=== PATIENT | male | born 1945 | race Caucasian/White ===

== ENCOUNTER 2017-03-04 16:55 | Observation (INO) | payer MEDICARE, BC ==
--- NOTE | ~2017-03-04 | DS ---
Discharge Summary [facility] [address] [place]. [address] NAME: ESPINOZA OSORIO : 41 STATUS : DIS [place] PAT#: [id number] AGE: 71 ADM/REG DATE : 03/04/17 MR#: [id number] REPORT SERV DATE: 03/05/17 DICTATED BY: FABIO REYES DATE: 03/05/17 REPORT STATUS : Draft TRANSCRIBED BY: MODL DATE: 03/05/17 ADMISSION DATE: 03/04/2017 DISCHARGE DATE: 03/05/2017 DISCHARGE DIAGNOSES: 1. Pneumonitis most likely due to tumor. 2. Chronic obstructive pulmonary disease with mild exacerbation, now resolved. 3. History of pulmonary embolism, on chronic anticoagulation. 4. Non-small cell lung cancer followed by Dr. Prabhjot Luna. CONSULTANTS DURING THIS HOSPITALIZATION: None. INVASIVE PROCEDURES DONE DURING THIS HOSPITALIZATION: None. BRIEF HISTORY OF PRESENT ILLNESS: The patient is a 71-year-old white male who presented with chest pain and cough, so he was admitted. For detailed history and physical exam, please see my note dictated on 03/04/2017. HOSPITAL COURSE: After being admitted to the hospital, this patient was given antibiotics and aggressive nebulizing treatments with IV steroids. When I saw the patient the next morning and reviewed his records, apparently this patient already has had left upper lobe tumor with collapse on a recent CT scan and is followed by Dr. Luna. Dr. Luna has set him up in [place] with Dr. Thomas to have proton radiation done. 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 There has not been much clinical change in his overall presentation. The chest x-ray done here apparently showed atelectasis, worsened infiltrates, and a shift in the mediastinum, which seems to have been present as well. I discussed his care with Dr. Cl Gill of Oncology, and at this time, there is no further treatment. He does have home O2 and he will continue that. DISCHARGE DISPOSITION: Home. DISCHARGE ACTIVITY: As tolerated. DISCHARGE DIET: Low-sodium diet. DISCHARGE MEDICATIONS: Tylenol 250 mg p.o. p.r.n., albuterol one puff p.o. daily p.r.n., albuterol nebs one neb every five hours p.r.n., apixaban 5 mg twice daily, guaifenesin 600 mg once every morning, prednisone 10 mg half tablet every 48 hours, magnesium one tablet twice daily, vitamin E, Ambien 2.5 mg once at bedtime. DISCHARGE FOLLOWUP: With Dr. Prabhjot Luna as previously scheduled. About 20 minutes spent planning this patient's discharge, reconciling medications, and discussing hospital care, and documenting this discharge. Discharge Summary [address] [address] NAME: ESPINOZA OSORIO : 41 STATUS : DIS Olive PAT#: [id number] AGE: 71 ADM/REG DATE : 03/04/17 MR#: [id number] REPORT SERV DATE: 03/05/17 DICTATED BY: FABIO REYES DATE: 03/05/17 REPORT STATUS : Draft TRANSCRIBED BY: GREY DATE: 03/05/17 DICTATED BY: Mayur Argueta/GREY Fabio Reyes M.D. / [id number] CC: Mayur Argueta LISA M * Darrell Johnson, M.D. Charles Adams, M.D.
--- NOTE | ~2017-03-04 | HP ---
History And Physical [facility] [address] [place]. [address] NAME: ESPINOZA OSORIO : 41 STATUS : ADM Olive PAT#: [id number] AGE: 71 ADM/REG DATE : 03/04/17 MR#: [id number] REPORT SERV DATE: 03/04/17 DICTATED BY: FABIO RODRIGUEZ DATE: 03/04/17 REPORT STATUS : Draft TRANSCRIBED BY: MODL DATE: 03/04/17 DATE OF ADMISSION: 03/04/2017 CHIEF COMPLAINT: Chest pain. BRIEF HISTORY OF PRESENT ILLNESS: The patient is a 71-year-old white male with known history of lung cancer, squamous cell carcinoma with metastasis, presented today with complaints of chest pain and coughing. He said it started somewhere around Tuesday and Tuesday. He has progressively gotten worse. Now whenever he coughs, his chest hurts mainly on the right side. When he takes a deep breath, it hurts as well. He has had significant sputum production, but no blood in the sputum. He has not had any fever, chills, or sweats. He denies any increased shortness of breath than his baseline. There is no back pain. No abdominal pain. No nausea, vomiting, or any other constitutional symptoms. When he came to the emergency room, his chest x-ray looked slightly worse than his previous with progression either of his cancer or maybe an infiltrate versus atelectasis, so he has been referred to the Hospitalist Service for further treatment and evaluation. REVIEW OF SYSTEMS: 10-point review of systems otherwise was negative. PAST MEDICAL HISTORY: Significant for squamous cell carcinoma with metastatic disease, status post chemo radiation for palliative treatment, currently on immunotherapy. He has a history of pneumonia, asbestosis, COPD, chronic long-standing tobacco abuse. He has also history of pulmonary emboli on chronic anticoagulation. PAST SURGICAL HISTORY: Significant for knee surgery from traumatic injury, but otherwise unremarkable. ALLERGIES: TO PENICILLIN. HOME MEDICATIONS: Tylenol, albuterol one puff p.r.n. daily, albuterol neb one neb every five hours p.r.n. for shortness of breath, Eliquis 5 mg twice daily, Mucinex 600 mg every morning, Deltasone 10 mg every 48 hours which is long-term therapy, magnesium one tablet p.o. twice daily, vitamin E, and Ambien 2.5 mg once at bedtime as needed for sleep. SOCIAL HISTORY: He is an active smoker and has cut down, was smoking almost one to two packs per day for many many years prior to his diagnosis of lung cancer. He denies any alcohol. Denies any illicit substances. He lives at home with and is self-sufficient in all ADLs. FAMILY HISTORY: Significant for diabetes. No history of lung cancer in the family. PHYSICAL EXAMINATION: GENERAL: White male, lying on a gurney, appears to be in no obvious respiratory distress. He is saturating 98% on 2 L. He is awake and alert. He is oriented. VITAL SIGNS: Blood pressure is 126/73, temp is 98.5, pulse of 106, saturation of 98% on 2 L History And Physical [address] [address] NAME: ESPINOZA OSORIO : 41 STATUS : ADM Olive PAT#: [id number] AGE: 71 ADM/REG DATE : 03/04/17 MR#: [id number] REPORT SERV DATE: 03/04/17 DICTATED BY: FABIO RODRIGUEZ DATE: 03/04/17 REPORT STATUS : Draft TRANSCRIBED BY: GREY DATE: 03/04/17 at his baseline. HEENT: Head is normocephalic, atraumatic. Pupils are equal, round, and reactive to light. Extraocular muscles are intact. Sclerae are anicteric. Conjunctivae normal. Oropharynx without lesion. Tongue protrusion midline. Uvula midline. NECK: Supple with no evidence of any jugular venous distention. No carotid bruits or thyromegaly is appreciated. No lymphadenopathy in the neck is palpable. HEART: Tachycardic. No murmurs, rubs, or gallops. PMI nondisplaced. LUNGS: Diffuse wheezing and rhonchi is noted. No crackles. No rales. No evidence of any focal consolidation. Worse on the right than on the left. ABDOMEN: Scaphoid, soft, nontender. Good bowel sounds. No rebound or guarding. No organomegaly. EXTREMITIES: Without cyanosis, clubbing, or edema. NEUROLOGIC: Completely intact. LABORATORY DATA: Procalcitonin level of 0.05. Electrolyte panel is completely normal. Creatinine is 0.81, glucose is 126. Liver function studies are completely normal and an albumin of 2.8. Troponin is less than 0.02. Lactate level is 1.4. White count is 8.5, a hemoglobin is 11.7, a hematocrit of 35, platelet count is 287,000, no left shift. PT is 14.6, INR of 1.2, PTT is 32. Chest x-ray, increased left hilar soft tissue fullness, likely representing interval progression of previously seen central left lung mass, volume loss on the left side with mediastinal shift to the left and increased density through the left lung which may be due to atelectasis and/or infiltrate, small left pleural fluid is also noted. EKG: Sinus rhythm with occasional PVCs. Incomplete right bundle branch block. Otherwise, no acute ST-T wave changes. IMPRESSION: 1. Most likely pleuritis. 2. Acute exacerbation of chronic obstructive pulmonary disease. 3. Pneumonia versus cancer progression. 4. History of pulmonary embolism. 5. Lung cancer with metastatic disease. PLAN: The patient will be admitted for observation. Nebulizing treatments will be given. IV Solu-Medrol will be started. IV antibiotics. PA and lateral chest x-ray. Again home medications have been addressed. The patient remains a full code. SV/GREY Fabio Rodriguez M.D. / [id number] History And Physical [address] [address] NAME: ESPINOZA OSORIO : 41 STATUS : ADM Olive PAT#: [id number] AGE: 71 ADM/REG DATE : 03/04/17 MR#: [id number] REPORT SERV DATE: 03/04/17 DICTATED BY: FABIO RODRIGUEZ DATE: 03/04/17 REPORT STATUS : Draft TRANSCRIBED BY: MODL DATE: 03/04/17 CC: Mayur Castro M.D.
[2017-03-04 16:15] LABS: BASOPHILS 0.1 %; BASOPHILS ABSOLUTE 0.01 10/3/uL (0.0-0.16); EOSINOPHILS 2.2 %; EOSINOPHILS ABSOLUTE 0.19 10/3/uL (0.0-0.53); ER CBC TAT 0 Hrs 07 Mins; HEMATOCRIT 35.2 % (40.0-51.0); HEMOGLOBIN 11.7 g/dL (13.6-17.8); IMMATURE GRANULOCYTES 0.2 %; IMMATURE GRANULOCYTES ABSOLUTE 0.02 10/3/uL (0.0-0.11); LYMPHOCYTES 9.1 %; LYMPHOCYTES ABSOLUTE 0.77 10/3/uL (0.67-4.30); MEAN CORPUS HGB CONC 33.2 g/dL (32.0-36.0); MEAN CORPUSCULAR HEMOGLOB 27.5 pg (26.0-34.0); MEAN PLATELET VOLUME 8.7 fL (9.2-13.0); MONOCYTES 7.3 %; MONOCYTES ABSOLUTE 0.62 10/3/uL (0.21-1.20); NEUTROPHILS 81.1 %; NEUTROPHILS ABSOLUTE 6.88 10/3/uL (2.02-8.40); PLATELET COUNT 287 10/3/uL (150-400); RBC DISTRIBUTION WIDTH 15.8 % (12.0-16.0); RED CELL COUNT 4.26 10/6/uL (4.7-6.1); WHITE BLOOD CELLS 8.5 10/3/uL (4.5-10.5)
[2017-03-04 16:16] LABS: MANUAL DIFF NO %; MEAN CORPUSCULAR VOLUME 82.6 fL (80-100)
[2017-03-04 16:23] LABS: INTERNATIONAL NORMAL RATI 1.2 UNITS (-); PARTIAL THROMBO TIME 32.6 SEC (22.5-37.2); PROTIME (NOT ORD) 14.6 SEC (12.0-14.5)
[2017-03-04 16:34] LABS: A/G RATIO 0.7 (0.7-1.9); ALBUMIN 2.8 G/DL (3.5-5.0); ALKALINE PHOSPHATASE 105 U/L (45-117); BUN (BLOOD UREA NITROGEN) 11 MG/DL (6-23); CALCIUM, SERUM 9.9 MG/DL (8.5-10.4); CHLORIDE, SERUM 98 MMOL/L (96-112); CREATININE 0.81 MG/DL (0.70-1.30); GFR AFRICAN AMERICAN 102 ML/MIN (>=60); GFR NON AFRICAN AMERICAN 88 ML/MIN (>=60); GLOBULIN 4.1 G/DL (2.5-4.1); GLUCOSE, SERUM 126 MG/DL (60-99); SGOT(AST) 13 U/L (5-40); SGPT(ALT) 16 U/L (5-65); SODIUM, SERUM 135 MMOL/L (135-148); TOTAL BILIRUBIN 0.4 MG/DL (0-1.2); TOTAL PROTEIN 6.9 G/DL (6.0-8.5); TROPONIN I <0.02 NG/ML (<0.05)
[2017-03-04 16:35] LABS: CO2 (CARBON DIOXIDE) 33 MMOL/L (24-34)
[2017-03-04 16:42] LABS: LACTATE 1.4 MMOL/L (0.3-2.4)
[~2017-03-04 16:55] MED LIST: ACET500CAP PO; ASAB PO; BACDS PO; CHEMOTHERAPY; CYANO1000T PO; ENDUR-ACIN PO; FISH-EPA1000 MG PO; FLONASE NAS; FOLIC ACID400 MC1 PO; FOLIC PO; GARLIC PO; LEVAQUIN750 MG PO; MAGNESIUM GLUCONATE PO; MAGOX4 PO; MIRALAXPKT PO; MUCINEX600 MG PO; NIACIN 500 MG PO; NIACIN OTC PO; OLIVE LEAF EXTRACT PO; OMNICEF300 PO; ORAZINC110 MG PO; OS500+D PO; P10 PO; PEP20 PO; POTASSIUM GLUCONATE PO; POTASSIUM95 MG PO; PROAIR HFA INH; RED YEAS1 PO; SLO-NIACIN250 MG PO; STRESS600T PO; TESS PO; TESSALON200 MG PO; VITAMIN B-6 OTC PO; VITAMIN D31000 UNIT PO; VITC500 PO; VITE PO; ZINC OTC PO; ZOVIRAX400 MG PO; [UNRECOGNIZED DRUG - OTHER] PO; [UNRECOGNIZED DRUG - REMARK] PO
[2017-03-04] MEDS ORDERED: ELIQUIS 5 MG TAB5 MG PO (17:09)
[2017-03-04] MEDS ORDERED: MUCINEX600 MG PO (17:10)
[2017-03-04] MEDS ORDERED: P10 PO (17:10)
[2017-03-04] MEDS ORDERED: AMB5 PO (17:11)
[2017-03-04] MEDS ORDERED: PROAIR HFA INH (17:12)
[2017-03-04] MEDS ORDERED: ALBUTEROL0.63 MG/3 INH (17:12)
[2017-03-04] MEDS ORDERED: MAGNESIUM PO (17:13)
[2017-03-04] MEDS ORDERED: VITAMIN E PO (17:14)
[2017-03-04] MEDS ORDERED: ACET500CAP PO (17:14)
[2017-03-04 17:52] LABS: PROCALCITONIN 0.05 ng/mL (<0.5)
[2017-03-05 05:32] LABS: BASOPHILS 0 %; EOSINOPHILS 0 %; HEMATOCRIT 35.1 % (40.0-51.0); HEMOGLOBIN 11.5 g/dL (13.6-17.8); IMMATURE GRANULOCYTES 0.2 %; IMMATURE GRANULOCYTES ABSOLUTE 0.01 10/3/uL (0.0-0.11); LYMPHOCYTES 6.6 %; LYMPHOCYTES ABSOLUTE 0.34 10/3/uL (0.67-4.30); MEAN CORPUS HGB CONC 32.8 g/dL (32.0-36.0); MEAN CORPUSCULAR HEMOGLOB 27.1 pg (26.0-34.0); MEAN CORPUSCULAR VOLUME 82.8 fL (80-100); MEAN PLATELET VOLUME 8.4 fL (9.2-13.0); MONOCYTES 1.2 %; MONOCYTES ABSOLUTE 0.06 10/3/uL (0.21-1.20); NEUTROPHILS ABSOLUTE 4.78 10/3/uL (2.02-8.40); PLATELET COUNT 277 10/3/uL (150-400); RBC DISTRIBUTION WIDTH 15.9 % (12.0-16.0); RED CELL COUNT 4.24 10/6/uL (4.7-6.1); WHITE BLOOD CELLS 5.2 10/3/uL (4.5-10.5)
[2017-03-05 05:34] LABS: MANUAL DIFF NO %
[2017-03-05 05:47] LABS: ALBUMIN 2.4 G/DL (3.5-5.0); BUN (BLOOD UREA NITROGEN) 14 MG/DL (6-23); CALCIUM, SERUM 9.7 MG/DL (8.5-10.4); CHLORIDE, SERUM 106 MMOL/L (96-112); CO2 (CARBON DIOXIDE) 29 MMOL/L (24-34); CREATININE 0.81 MG/DL (0.70-1.30); GFR AFRICAN AMERICAN 102 ML/MIN (>=60); GFR NON AFRICAN AMERICAN 88 ML/MIN (>=60); SODIUM, SERUM 138 MMOL/L (135-148)
[2017-03-05 05:49] LABS: GLUCOSE, SERUM 168 MG/DL (60-99); PHOSPHORUS, SERUM 3.1 MG/DL (2.5-4.5)
[2017-04-29] MEDS ORDERED: ULTRAM50 PO (14:47)
[2017-04-29] MEDS ORDERED: COMP10B PO (14:49)
[2017-04-29] MEDS ORDERED: ZOFRAN8 PO (14:49)
[2017-04-29] MEDS ORDERED: PEP20 PO (14:51)
[2017-04-29] MEDS ORDERED: FLONASE NAS (15:17)
== END 2017-03-05 12:13 | disposition home or self-care (01) ==
LOC: ER 16:55 → CDU1 18:01 → CDU2 21:22
PROVIDERS: Internal Medicine; Specialist
DX: J18.9 Pneumonia, unspecified organism (principal); J44.1 Chronic obstructive pulmonary disease with (acute) exacerbation; C34.90 Malignant neoplasm of unspecified part of unspecified bronchus or lung; F17.210 Nicotine dependence, cigarettes, uncomplicated; Z86.711 Personal history of pulmonary embolism; Z92.3 Personal history of irradiation; Z87.01 Personal history of pneumonia (recurrent); Z87.09 Personal history of other diseases of the respiratory system; Z98.890 Other specified postprocedural states; Z83.3 Family history of diabetes mellitus; Z88.0 Allergy status to penicillin; Z88.1 Allergy status to other antibiotic agents; Z79.01 Long term (current) use of anticoagulants; Z79.52 Long term (current) use of systemic steroids; Z79.899 Other long term (current) drug therapy
CPT/HCPCS: 71010; 80053; 80069; 83605; 84145; 84484; 85025; 85610; 85730; 87040; 93005; 94640; 96365; 96374; 96375; 99285; A9270-GY; G0378; J0456; J0692; J1885; J2930

== ENCOUNTER 2017-05-03 10:00 | Day surgery (SDC) | payer MEDICARE, BC ==
[~2017-05-03] VITALS: Ht 177.8 cm; Wt 62.6 kg
--- NOTE | ~2017-05-03 | EGD ---
EGD REPORT [facility] [address] [place] [address] NAME: ESPINOZA OSORIO : 41 STATUS : REG [facility]#: [id number] AGE: 71 ADM/REG DATE : 05/03/17 MR#: [id number] REPORT SERV DATE: 05/03/17 DICTATED BY: MARKO BERNSTEIN DATE: 05/03/17 REPORT STATUS : Draft [facility]: [facility] DATE: 05/03/17 Pulmonology Patient Name: Espinoza Osorio Procedure Date: 05/03/2017 12:00 PM Date of : 1945 Attending MD: TALON BERNSTEIN MD Procedure Date No Time: 05/03/2017 Procedure: Flexible rigid bronchoscopy Indications: Left hilar mass, question of possible stent placement Providers: TALON BERNSTEIN MD Referring MD: JAYA COMBS Medicines: Lidocaine 2% subglottic space mL Complications: No immediate complications Procedure: Pre-Anesthesia Assessment: - A History and Physical has been performed. Patient meds and allergies have been reviewed. The risks and benefits of the procedure and the sedation options and risks were discussed with the patient. All questions were answered and informed consent was obtained. Patient identification and proposed procedure were verified prior to the procedure by the physician and the nurse in the pre-procedure area in the procedure room. Mental Status Examination: alert and oriented. Airway Examination: normal oropharyngeal airway. Respiratory Examination: poor air movement. CV Examination: normal and RRR, no murmurs, no S3 or S4. ASA Grade Assessment: III - A patient with severe systemic disease. After reviewing the risks and benefits, the patient was deemed in satisfactory condition to undergo the procedure. The anesthesia plan was to use general anesthesia. Immediately prior to administration of medications, the patient was re-assessed for adequacy to receive sedatives. The heart rate, respiratory rate, oxygen saturations, blood pressure, adequacy of pulmonary ventilation, and response to care were monitored throughout the procedure. The physical status of the patient was re-assessed after the procedure. After obtaining informed consent, the BF [id number] [id number] was introduced through the mouth, via the endotracheal tube (the patient was intubated for the procedure) and advanced to the tracheobronchial tree. The procedure was accomplished without difficulty. The patient tolerated the procedure well. Findings: The endotracheal tube is in good position. The visualized portion of the EGD REPORT [facility] [address] [place]. [address] NAME: ESPINOZA OSORIO : 41 STATUS : REG [facility] PAT#: [id number] AGE: 71 ADM/REG DATE : 05/03/17 MR#: [id number] REPORT SERV DATE: 05/03/17 DICTATED BY: MARKO BERNSTEIN DATE: 05/03/17 REPORT STATUS : Draft TRANSCRIBED BY: [employer] DATE: 05/03/17 trachea is of normal caliber. The jesus is sharp. The tracheobronchial tree was examined to at least the first subsegmental level. Friable endobronchial tumor was noted in the MAVERICK and LLL with complete occlusion of the MAVERICK and subtotal occlusion of the LLL. Balloon bronchoplasty witha dolores number 4 was performed in the MAVERICK and LLL with no significant benefit. The FiO2 was then lowered to less than 40% and argon plasma coagulation therapy was performed for hemostasis and destruction of tumor. The tumor is an infiltrative process and not amenable to stent placement. Bronchoalveolar lavage was performed in the left lower lobe of the lung and sent for routine cytology. 60 mL of fluid were instilled. 10 mL were returned. The return was blood-tinged and cellular. Impression: The tumor is an infiltrative process in the MAVERICK and LLL and not amenable to stent placement. Recommendation: - Await test results. - Follow up with referring physician as previously scheduled. - Proceed with proton therapy Attending Participation: I personally performed the entire procedure. TALON BERNSTEIN MD 05/03/2017 12:54 PM This report has been signed electronically. Number of Addenda: 0 Note Initiated On: 05/03/2017 12:00 PM [address] [place] [id number]
[~2017-05-03 10:00] MED LIST changes: +ALBUTEROL0.63 MG/3 INH; +AMB5 PO; +COMP10B PO; +ELIQUIS 5 MG TAB5 MG PO; +MAGNESIUM PO; +ULTRAM50 PO; +VITAMIN E PO; +ZOFRAN8 PO
[2017-05-03 10:33] LABS: INTERNATIONAL NORMAL RATI 1.1 UNITS (-); PARTIAL THROMBO TIME 28.1 SEC (22.5-37.2); PROTIME (NOT ORD) 13.9 SEC (12.0-14.5)
[2017-05-03 10:38] LABS: BUN (BLOOD UREA NITROGEN) 12 MG/DL (6-23); CHLORIDE, SERUM 99 MMOL/L (96-112); CO2 (CARBON DIOXIDE) 30 MMOL/L (24-34); CREATININE 0.97 MG/DL (0.70-1.30); GFR AFRICAN AMERICAN 89 ML/MIN (>=60); GFR NON AFRICAN AMERICAN 77 ML/MIN (>=60); POTASSIUM, SERUM 4.4 MMOL/L (3.5-5.3); SODIUM, SERUM 134 MMOL/L (135-148)
[2017-05-03 10:39] LABS: CALCIUM, SERUM 10.9 MG/DL (8.5-10.4); GLUCOSE, SERUM 95 MG/DL (60-99)
== END 2017-05-03 23:59 | disposition home or self-care (01) ==
LOC: DMU 10:00
PROVIDERS: Anesthesiology; Internal Medicine
PROC: 0B5 Respiratory System, Destruction (ICD-10-PCS; 2017-05-03)
PROC: 0B9J8ZX Drainage of Left Lower Lung Lobe, Via Natural or Artificial Opening Endoscopic, Diagnostic (ICD-10-PCS; principal; 2017-05-03 11:30)
PROC: 0B5G8ZZ Destruction of Left Upper Lung Lobe, Via Natural or Artificial Opening Endoscopic (ICD-10-PCS; 2017-05-03 11:30)
DX: C34.12 Malignant neoplasm of upper lobe, left bronchus or lung (principal); J44.9 Chronic obstructive pulmonary disease, unspecified; K21.9 Gastro-esophageal reflux disease without esophagitis; F17.210 Nicotine dependence, cigarettes, uncomplicated; M19.90 Unspecified osteoarthritis, unspecified site; Z86.11 Personal history of tuberculosis; Z86.711 Personal history of pulmonary embolism; Z92.21 Personal history of antineoplastic chemotherapy; Z92.3 Personal history of irradiation; Z88.1 Allergy status to other antibiotic agents; Z98.890 Other specified postprocedural states; Z79.52 Long term (current) use of systemic steroids; Z79.01 Long term (current) use of anticoagulants; Z79.899 Other long term (current) drug therapy
CPT/HCPCS: 71010; 80048; 85610; 85730; 88112; 88305; 93005; A9270-GY; C1757; J2405; J2710; J3010